=== PATIENT | male | born 1985 | race Caucasian/White ===

== ENCOUNTER 2024-05-26 13:33 | Emergency (ER) | payer OTHER ==
[~2024-05-26] VITALS: Ht 188 cm; Wt 83.9 kg
[~2024-05-26 13:33] MED LIST: Amoxicillin500 MG PO; CYCL10 PO; HYDACE5 PO; HYDCHL25 PO; IBUP800 PO; NAPR375 PO; NAPR550 PO; Norco 5-325 Ta1 EACH PO; PRED20 PO; PSEU120ER PO; Permethrin60 GM TP; SULTRISS PO; Zithromax250 MG PO
[2024-05-26 14:08] VITALS: BP 139/87
[2024-05-26] MEDS ORDERED: TIZA4 PO (16:02)
== END 2024-05-26 16:05 | disposition home or self-care (01) ==
LOC: ER 13:33
DX: M54.2 Cervicalgia (principal); V89.2XXD Person injured in unspecified motor-vehicle accident, traffic, subsequent encounter
CPT/HCPCS: 72040; 99283-25

== ENCOUNTER 2024-06-18 09:50 | Emergency (ER) | payer OTHER ==
[~2024-06-18] VITALS: Ht 182.9 cm; Wt 86.2 kg
[~2024-06-18 09:50] MED LIST changes: +TIZA4 PO
[2024-06-18 10:39] VITALS: BP 140/95
== END 2024-06-18 13:46 | disposition home or self-care (01) ==
LOC: ER 09:50
DX: S50.852A Superficial foreign body of left forearm, initial encounter (principal); I10 Essential (primary) hypertension; F17.210 Nicotine dependence, cigarettes, uncomplicated; W24.1XXA Contact with transmission devices, not elsewhere classified, initial encounter
CPT/HCPCS: 73090